=== PATIENT | female | born 1990 | race Caucasian/White ===

== ENCOUNTER 2019-08-26 11:24 | Emergency (ER) | payer MEDICAID, OTHER ==
[~2019-08-26] VITALS: Ht 160 cm; Wt 56.7 kg
[2019-08-26 11:47] VITALS: BP 106/80
[2019-08-26] MEDS ORDERED: LIDOCAINE 1% HCL (LOCAL ANESTH.) INJ 20ML MDV IJ ONE (12:45)
[2019-08-26] MEDS ORDERED: IBUPROFEN 800 MG TAB PO ONE (13:15)
== END 2019-08-26 13:10 | disposition home or self-care (01) ==
LOC: ER 11:24
DX: S01.81XA Laceration without foreign body of other part of head, initial encounter (principal); W18.09XA Striking against other object with subsequent fall, initial encounter; Y93.89 Activity, other specified; Y92.89 Other specified places as the place of occurrence of the external cause; Y99.8 Other external cause status
CPT/HCPCS: 12011; 70450; 99284; J2001